=== PATIENT | male | born 1940 | race Asian ===

== ENCOUNTER 2016-10-25 17:29 | Inpatient (IN) | payer MEDICARE, OTHER ==
[~2016-10-25] VITALS: Ht 165.1 cm; Wt 67.2 kg
[~2016-10-25 17:29] MED LIST: ALLOPURINOL100 M1 PO; CENTRUM1 TAB PO; CIPRO500 MG PO; COLSALIDE IMPR0.6 MG PO; CRESTOR10 MG; FISH OIL1000 M1 PO; FLOMAX0.4 MG PO; LISINOPRIL20 MG PO; METOPROLOL100 MG; METOPROLOL50 M1 PO; MONOPRIL20 MG; SIMVASTATIN20 M1 PO
[2016-10-25 17:34] VITALS: BP 151/112
--- NOTE | 2016-10-25 17:43 | NUR ---
76/M BIB FAMILY C/O CHEST PAIN X 3 DAY . PT DENIES N/V/D; SKIN IS PINK/WARM/DRY; AAOX4 WITH EVEN AND STEADY GAIT; LUNGS CLEAR BL; HR EVEN AND REGULAR; PT DENIES ANY FEVER,SOB, OR COUGH AT THIS TIME; PATIENT STATES PAIN OF 5/10 AT THIS TIME; PATIENT POSITIONED FOR COMFORT; HOB ELEVATED; BEDRAILS UP X2; BED DOWN. ER MD MADE AWARE OF PT STATUS.
--- NOTE | 2016-10-25 17:47 | NUR ---
LAB AT BEDSIDE
--- NOTE | 2016-10-25 18:30 | NUR ---
DR LEE EVALUATING PT AT BEDSIDE
[2016-10-25] MEDS ORDERED: INSULIN ASPART SLIDING SCALE 100 UNITS/ML VIAL SUBQ PRN ×2 (18:55→20:30)
[2016-10-25] MEDS ORDERED: DEXTROSE 50% 50 ML SYR IVP PRN ×2 (18:55→20:30)
[2016-10-25] MEDS ORDERED: ALBUTEROL 0.083% 2.5 MG/3 ML NEBU IH PRN ×2 (18:55→20:30)
[2016-10-25] MEDS ORDERED: ONDANSETRON 4 MG/2 ML VIAL IVP PRN ×2 (18:55→20:30)
[2016-10-25] MEDS ORDERED: HYDROcodone/APAP 5/325 MG 1 TAB TAB PO PRN (18:55)
--- NOTE | 2016-10-25 19:15 | NUR ---
GOT REPORT FROM LAKESHA MCKINNON
--- NOTE | 2016-10-25 19:16 | NUR ---
Pt report given to LAKESHA ZIEGLER. Transfer of care at this time.
--- NOTE | 2016-10-25 20:21 | NUR ---
Patient will be admitted to care of DR. HENLEY. Admited to TELEMETRY. Will go to [id number]. Belongings list completed. Report to LAKESHA ROQUE.
--- NOTE | 2016-10-25 20:28 | NUR ---
PT ARRIVED TO UNIT IN ROOM 123B. ABLE TO AMBULATE FROM GURNEY TO BED WITH CANE. SON AT BEDSIDE.
[2016-10-25 20:35] VITALS: BP 138/81
--- NOTE | 2016-10-25 20:35 | NUR ---
SHIFT ASSESSMENT DONE AT THIS TIME. PT IS A/O X4, ABLE TO FOLLOW COMMANDS AND VERBALIZE NEEDS. VITAL SIGNS ARE STABLE, PT ON ROOM AIR WITH OXYGEN SATURATION AT 98%. DENIES CHEST PAIN AND N/V/D AT THIS TIME. NO SOB OR RESPIRATORY DISTRESS NOTED. SKIN INTACT. IV ACCESS TO RT AC #20G PATENT AND INTACT. LUNG SOUNDS ARE CLEAR, BOWEL SOUNDS ACTIVE. DISCUSSED PLAN OF CARE WITH PT, VERBALIZED UNDERSTANDING. CALL LIGHT WITHIN REACH. ORIENTED PT TO UNIT. ALL NEEDS MET. WILL CONTINUE TO MONITOR PT. SAFETY PRECAUTIONS IMPLEMENTED.
[2016-10-25] MEDS ORDERED: BLOOD GLUCOSE MONITORING 1 DEV DEV FS SCH (21:00)
[2016-10-25] MEDS: SIMVASTATIN 20 MG TAB PO SCH (21:03)
[2016-10-25] MEDS: BLOOD GLUCOSE MONITORING 1 DEV DEV FS SCH (21:05)
[2016-10-25] MEDS ORDERED: INFLUENZA VIRUS VACCINE QUAD 0.5 ML SYR IMVAC PRN (21:30)
[2016-10-25] MEDS ORDERED: PNEUMOCOCCAL VACCINE 23 MCG/0.5 ML VIAL IMVAC PRN (21:30)
[2016-10-25] MEDS ORDERED: ASPIRIN81 M1 PO (21:33)
[2016-10-25] MEDS ORDERED: GLUCOPHAGE XR500 MG PO (21:33)
[2016-10-25] MEDS: HYDROcodone/APAP 5/325 MG 1 TAB TAB PO PRN (21:43)
--- NOTE | 2016-10-25 21:44 | NUR ---
PROVIDED PT WITH PAIN MEDICATION PER ORDERS. SEE eMAR AND PAIN INTERVENTION.
--- NOTE | 2016-10-25 23:05 | NUR ---
PT NOTED SLEEPING, NO ACUTE DISTRESS. WILL CONTINUE TO MONITOR.
[2016-10-26] VITALS: BP 109/66
--- NOTE | 2016-10-26 00:09 | NUR ---
VS REMAIN STABLE. PT WAS SLEEPING WELL. NO DISTRESS NOTED. NO SOB. PT DENIES CHEST PAIN OR HEADACHE. WILL CONTINUE TO MONITOR. CALL LIGHT WITHIN REACH.
--- NOTE | 2016-10-26 02:01 | NUR ---
PT REMAINS ASLEEP, NO ACUTE DISTRESS NOTED. CALL LIGHT WITHIN REACH.
[2016-10-26 04:00] VITALS: BP 124/78
--- NOTE | 2016-10-26 04:15 | NUR ---
VITAL SIGNS REMAINS STABLE. PT ABLE TO WAKE, RESPOND AND FOLLOW COMMAND. NO ACUTE DISTRESS NOTED. CALL LIGHT WITHIN EASY REACH. WILL CONTINUE TO MONITOR.
[2016-10-26] MEDS: HYDROcodone/APAP 5/325 MG 1 TAB TAB PO PRN (07:05)
--- NOTE | 2016-10-26 07:27 | NUR ---
ENDORSED PT TO DONATO RN FOR CONTINUITY OF CARE AT PT BEDSIDE, NO ACUTE DISTRESS NOTED. PT TALKING ON PHONE.
--- NOTE | 2016-10-26 07:28 | NUR ---
RECEIVED REPORT FROM LAKESHA ROQUE. PATIENT IS ON THE PHONE TALKING, AAOX4, SKIN IS INTACT, HAS A RIGHT AC 20G ON SALINE LOCK, FLUSHED PATENT. INITIAL ASSESSMENT DONE, NO S/S OF RESPIRATORY DISTRESS OR DISCOMFORT NOTED, DISCUSSED PLAN OF CARE, PT VERBALIZED UNDERSTANDING. SAFETY/FALL PRECAUTION ENFORCED, CALL LIGHT WITHIN REACH. WILL CONTINUE TO MONITOR
[2016-10-26] MEDS: BLOOD GLUCOSE MONITORING 1 DEV DEV FS SCH ×4 (07:39→21:00)
[2016-10-26 08:00] VITALS: BP 115/69
--- NOTE | 2016-10-26 08:21 | NUR ---
PATIENT HAS BEEN SCREENED AND CATEGORIZED HIGH NUTRITION RISK. PATIENT WILL BE SEEN WITHIN 1-2 DAYS OF ADMISSION. 10/26/16-10/27/[address]
[2016-10-26] MEDS ORDERED: TAMSULOSIN 0.4 MG CAP PO SCH (09:00)
[2016-10-26] MEDS ORDERED: ENOXAPARIN 40 MG/0.4 ML SYR SUBQ SCH ×3 (09:00)
[2016-10-26] MEDS ORDERED: SIMVASTATIN 20 MG TAB PO SCH (09:00)
[2016-10-26] MEDS ORDERED: ASPIRIN 325 MG TAB PO SCH (09:00)
[2016-10-26] MEDS ORDERED: METOPROLOL 50 MG TAB PO SCH (09:00)
[2016-10-26] MEDS ORDERED: LISINOPRIL 20 MG TAB PO SCH (09:00)
[2016-10-26] MEDS: LISINOPRIL 20 MG TAB PO SCH (09:20)
[2016-10-26] MEDS: METOPROLOL 50 MG TAB PO SCH (09:23)
[2016-10-26] MEDS: TAMSULOSIN 0.4 MG CAP PO SCH (09:23)
[2016-10-26] MEDS: ASPIRIN 325 MG TAB PO SCH (09:23)
--- NOTE | 2016-10-26 09:23 | NUR ---
DUE MEDICATIONS WERE GIVEN. PATIENT TOLERATED WELL. WILL CONTINUE TO MONITOR
[2016-10-26] MEDS: ENOXAPARIN 40 MG/0.4 ML SYR SUBQ SCH (09:31)
[2016-10-26 12:00] VITALS: BP 113/64
--- NOTE | 2016-10-26 12:52 | NUR ---
PT'S FAMILY MEMBER AT BEDSIDE, QUESTIONS ANSWERED. PT IS RESTING ON BED, NO S/S OF RESPIRATORY DISTRESS OR DISCOMFORT NOTED, ALL NEEDS MET AT THIS TIME, CALL LIGHT WITHIN REACH, WILL CONTINUE TO MONITOR.
--- NOTE | 2016-10-26 15:50 | NUR ---
SPOKE TO Armando PÉREZ UPDATED ON PT'S CONDITION, HE STATED THAT HE WILL BE COMING LATER TO SEE THE PT.
[2016-10-26 16:00] VITALS: BP 95/54
--- NOTE | 2016-10-26 16:21 | NUR ---
PT IS SLEEPING AT THIS TIME, NO S/S OF RESPIRATORY DISTRESS OR DISCOMFORT NOTED, FAMILY MEMBERS AT BEDSIDE, CALL LIGHT WITHIN REACH, WILL CONTINUE TO MONITOR.
--- NOTE | 2016-10-26 17:44 | NUR ---
Armando PÉREZ IS IN THE NURSE'S STATION.
[2016-10-26] MEDS ORDERED: REGADENOSON 0.4 MG/5 ML SYR IV ONE (17:50)
--- NOTE | 2016-10-26 18:02 | NUR ---
DINNER SERVED, PT HAS GOOD APPETITE, NO S/S OF RESPIRATORY DISTRESS OR DISCOMFORT NOTED, ALL NEEDS MET AT THIS TIME, CALL LIGHT WITHIN REACH, WILL CONTINUE TO MONITOR.
--- NOTE | 2016-10-26 19:10 | NUR ---
PT WAS ENDORSED TO LAKESHA MARQUEZ. FOR CONTINUITY OF CARE. PT IS STABLE AT THIS TIME.
--- NOTE | 2016-10-26 19:12 | NUR ---
RECEIVED REPORT FROM DAYSHIFT RN FOR CONTINUITY OF CARE. PATIENT IS A&OX4, DISCUSSED PLAN OF CARE WITH PT AND SON AT BEDSIDE, VERBALIZED UNDERSTANDING. SHIFT ASSESSMENT DONE, VS TAKEN, PATIENT IS STABLE AT THIS TIME. NO S/S OF RESPIRATORY DISTRESS NOTED ON ROOM AIR. PATIENT DENIES PAIN. IV TO RT AC 20 GAUGE PATENT AND FLUSHED. SKIN INTACT. SAFETY/ FALL PRECAUTIONS ENFORCED. EDUCATED PATIENT REGARDING NPO AT MIDNIGHT FOR LEXISCAN TEST, VERBALIZED UNDERSTANDING. CALL LIGHT WITHIN REACH. WILL CONTINUE TO MONITOR.
[2016-10-26 20:00] VITALS: BP 119/71
[2016-10-26] MEDS: SIMVASTATIN 20 MG TAB PO SCH (20:38)
--- NOTE | 2016-10-26 20:38 | NUR ---
DUE MEDICATION ADMINISTERED, TOLERATED WELL. BLOOD SUGAR TAKEN, 117 NO COVERAGE NEEDED. REINFORCED TO PT NPO AFTER MIDNIGHT, VERBALIZED UNDERSTANDING. CALL LIGHT WITHIN REACH.
--- NOTE | 2016-10-26 22:36 | NUR ---
PATIENT IS ASLEEP. NO S/S OF DISTRESS OR DISCOMFORT NOTED. CALL LIGHT WITHIN REACH.
--- NOTE | 2016-10-26 23:57 | NUR ---
VS TAKEN, STABLE. PATIENT ATE SMALL SNACK AND WATER PRIOR TO NPO STATUS. PATIENT UP AT SINK PERFORMING PM CARE. CALL LIGHT WITHIN REACH.
[2016-10-27] VITALS: BP 129/75
--- NOTE | 2016-10-27 02:05 | NUR ---
PT IS SLEEPING. NO S/S OF RESPIRATORY DISTRESS NOTED. CALL LIGHT WITHIN REACH.
--- NOTE | 2016-10-27 03:45 | NUR ---
VS TAKEN, STABLE. PT C/O HEADACHE, REFUSED PAIN MEDICATION. NPO REINFORCED. CALL LIGHT WITHIN REACH.
[2016-10-27 04:00] VITALS: BP 114/58
--- NOTE | 2016-10-27 06:12 | NUR ---
BLOOD SUGAR TAKEN, 103, NO INSULIN COVERAGE NEEDED. PT STATES HEADACHE IS STILL THERE BUT REFUSED PAIN MEDICATIONS WHEN OFFERED. WILL CONTINUE TO MONITOR.
[2016-10-27] MEDS: BLOOD GLUCOSE MONITORING 1 DEV DEV FS SCH ×4 (06:13→20:23)
--- NOTE | 2016-10-27 07:13 | NUR ---
ENDORSED PATIENT TO DAYSHIFT RN FOR CONTINUITY OF CARE, PATIENT IS IN STABLE CONDITION.
--- NOTE | 2016-10-27 07:14 | NUR ---
RECEIVED REPORT FROM LAKESHA MARQUEZ. PT IS RESTING ON BED, AAOx4, SKIN INTACT, IV ON RT AC, FLUSHED PATENT AND INTACT ON SALINE LOCK. INITIAL ASSESSMENT DONE, NO S/S RESPIRATORY DISTRESS OR DISCOMFORT NOTED. DISCUSSED PLAN OF CARE, PT VERBALIZED UNDERSTANDING. SAFETY/FALL PRECAUTIONS ENFORCED, CALL LIGHT WITHIN REACH. WILL CONTINUE TO MONITOR.
[2016-10-27 08:00] VITALS: BP 133/74
[2016-10-27] MEDS: ASPIRIN 325 MG TAB PO SCH (08:44)
[2016-10-27] MEDS: TAMSULOSIN 0.4 MG CAP PO SCH (08:44)
[2016-10-27] MEDS: METOPROLOL 50 MG TAB PO SCH (08:45)
--- NOTE | 2016-10-27 08:45 | NUR ---
DUE MEDS GIVEN, PT TOLERATED WELL, CALL LIGHT WITHIN REACH, WILL CONTINUE TO MONITOR
[2016-10-27] MEDS: LISINOPRIL 20 MG TAB PO SCH (08:46)
[2016-10-27] MEDS: ENOXAPARIN 40 MG/0.4 ML SYR SUBQ SCH (08:48)
--- NOTE | 2016-10-27 08:49 | NUR ---
DUE MEDS GIVEN, PT TOLERATED WELL. LOVENOX HELD, PT PLT 110. ALL NEEDS MET AT THIS TIME. CALL LIGHT WITHIN REACH WILL CONTINUE TO MONITOR.
--- NOTE | 2016-10-27 09:34 | NUR ---
INITIAL REVIEW FAXED TO [facility] [phone] PHONE DESIREE [phone]
--- NOTE | 2016-10-27 11:30 | NUR ---
PT RESTING ON BED TALKING TO FAMILY MEMBERS AT BEDSIDE. QUESTIONS ANSWERED. ALL NEEDS MET AT THIS TIME. CALL LIGHT WITHIN REACH. WILL CONTINUE TO MONITOR.
[2016-10-27 12:00] VITALS: BP 113/69
--- NOTE | 2016-10-27 13:05 | NUR ---
PT RESTING ON BED TALKING TO FAMILY MEMBERS AT BEDSIDE. ALL NEEDS MET AT THIS TIME. CALL LIGHT WITHIN REACH. WILL CONTINUE TO MONITOR.
--- NOTE | 2016-10-27 13:52 | NUR ---
10/27/16 RD INITIAL ASSESSMENT COMPLETED PLEASE REFER TO NUTRITION ASSESSMENT UNDER CARE ACTIVITY FOR ESTIMATED NUTRITIONAL NEEDS. RD RECOMMENDATIONS: 1. CONTINUE CCHO 60 GM DIET TOLERATED PER MD 2. RD PROVIDED PT WITH DM DIET EDUCATION 3. RD WILL F/U 5-7 DAYS; LOW RISK. KENYON BAINS RD
--- NOTE | 2016-10-27 14:39 | NUR ---
PT LEFT UNIT FOR LEXISCAN STRESS TEST.
--- NOTE | 2016-10-27 16:24 | NUR ---
LEXISCAN STRESS TEST DONE
--- NOTE | 2016-10-27 16:56 | NUR ---
PT IS BACK FROM LEXISCAN STRESS TEST, ALL NEEDS MET AT THIS TIME, NO S/S OF RESPIRATORY DISTRESS OR DISCOMFORT NOTED, CALL LIGHT WITHIN REACH, WILL CONTINUE TO MONITOR.
[2016-10-27 17:00] VITALS: BP 123/85
--- NOTE | 2016-10-27 19:00 | NUR ---
ENDORSED PT TO LAKESHA MARQUEZ FOR CONTINUITY OF CARE. PT IS STABLE AT THIS TIME.
--- NOTE | 2016-10-27 19:22 | NUR ---
RECEIVED REPORT FROM DAYSHIFT RN FOR CONTINUITY OF CARE. PATIENT IS A&OX4, DISCUSSED PLAN OF CARE WITH PT AND FAMILY MEMBER AT BEDSIDE, VERBALIZED UNDERSTANDING. SHIFT ASSESSMENT DONE, VS TAKEN, STABLE. NO S/S OF RESPIRATORY DISTRESS NOTED ON ROOM AIR. PATIENT DENIES PAIN. IV TO RT HAND 24 GAUGE PATENT AND FLUSHED, REINFORCED DRESSING. SKIN INTACT. SAFETY/ FALL PRECAUTIONS ENFORCED. CALL LIGHT WITHIN REACH. WILL CONTINUE TO MONITOR.
[2016-10-27 20:00] VITALS: BP 125/64
[2016-10-27] MEDS: SIMVASTATIN 20 MG TAB PO SCH (20:19)
--- NOTE | 2016-10-27 20:19 | NUR ---
DUE MEDICATION ADMINISTERED, TOLERATED WELL. BLOOD SUGAR TAKEN, 156. CALL LIGHT WITHIN REACH.
--- NOTE | 2016-10-27 21:25 | NUR ---
INSULIN ADMINISTERED PER MD ORDER. ALL NEEDS MET AT THIS TIME. WILL CONTINUE TO MONITOR.
[2016-10-28] VITALS: BP 97/48
--- NOTE | 2016-10-28 00:05 | NUR ---
VS TAKEN, STABLE. PT IS SLEEPING, NO S/S OF DISTRESS OR DISCOMFORT NOTED. CALL LIGHT WITHIN REACH.
--- NOTE | 2016-10-28 01:47 | NUR ---
PT IS SLEEPING. NO S/S OF DISTRESS OR DISCOMFORT NOTED. CALL LIGHT WITHIN REACH.
[2016-10-28 04:00] VITALS: BP 109/75
--- NOTE | 2016-10-28 04:02 | NUR ---
VS TAKEN, STABLE. INFORMED PATIENT OF RESULTS FROM LEXISCAN, VERBALIZED UNDERSTANDING. CALL LIGHT WITHIN REACH.
[2016-10-28] MEDS: BLOOD GLUCOSE MONITORING 1 DEV DEV FS SCH (06:01)
--- NOTE | 2016-10-28 06:30 | NUR ---
ADMINISTERED VACCINES PER MD ORDER, NO REACTION NOTED. BLOOD SUGAR, 105, NO COVERAGE NEEDED. WILL CONTINUE TO MONITOR.
--- NOTE | 2016-10-28 07:00 | NUR ---
ENDORSED PATIENT TO DAYSHIFT RN FOR CONTINUITY OF CARE, PATIENT IS IN STABLE CONDITION.
--- NOTE | 2016-10-28 07:00 | NUR ---
PT ALERT AND ORIENTED X4, BREATHING EVENLY AND UNLABORED, NO SIGNS OF ACUTE DISTRESS. SKIN IS WARM AND DRY. NO SIGNS OF ANY BOWEL/BLADDER DISCOMFORT. DENIES OF ANY PAIN OR DISCOMFORT. ALL NEEDS ATTENDED, SAFETY PRECAUTIONS MAINTAINED. CALL LIGHT WITHIN REACH. JANUARY D/C HOME ORDERED, LEXISCAN RESULT NEGATIVE.
[2016-10-28 08:00] VITALS: BP 132/71
[2016-10-28] MEDS: METOPROLOL 50 MG TAB PO SCH (08:38)
[2016-10-28] MEDS: ASPIRIN 325 MG TAB PO SCH (08:39)
[2016-10-28] MEDS: TAMSULOSIN 0.4 MG CAP PO SCH (08:40)
[2016-10-28] MEDS: LISINOPRIL 20 MG TAB PO SCH (08:40)
[2016-10-28] MEDS: ENOXAPARIN 40 MG/0.4 ML SYR SUBQ SCH (08:44)
--- NOTE | 2016-10-28 10:15 | NUR ---
PT AWAKE ALERT AND ORIENTED, NO SIGNS OF ACUTE DISTRESS, DENIES OF ANY PAIN. MAY D/C HOME. EDUCATED TO FOLLOW UP WITH PCP AND STONECUTTER ASSISTANT. CONTINUE HOME MEDS ORDERED. PT VERBALIZED UNDERSTANDING. IV LINE WRIST BANDS AND TELE LEADS REMOVED. PERSONAL BELONGINGS WITH PT UPON DISCHARGE. PICKED UP BY SON AND ESCORTED TO FRONT LOBBY. WILL GO HOME VIA PRIVATE AUTO.
== END 2016-10-28 10:15 | disposition home or self-care (01) | DRG 198 ==
LOC: MED 17:29 → MTU 20:21 → MED 20:24 → OBSVTOIN 10-26 14:46
PROVIDERS: ADMIT Hospitalist; ATTEND Hospitalist
DX: R07.89 Other chest pain (principal); I25.10 Atherosclerotic heart disease of native coronary artery without angina pectoris; E11.9 Type 2 diabetes mellitus without complications; I10 Essential (primary) hypertension; R51 Headache; E78.5 Hyperlipidemia, unspecified; Z28.21 Immunization not carried out because of patient refusal; Z79.899 Other long term (current) drug therapy; Z90.49 Acquired absence of other specified parts of digestive tract
CPT/HCPCS: 99285; G0378

== ENCOUNTER 2017-02-27 14:55 | Emergency (ER) | payer MEDICARE, OTHER ==
[~2017-02-27] VITALS: Ht 165.1 cm; Wt 68.0 kg
[~2017-02-27 14:55] MED LIST changes: -ALLOPURINOL100 M1 PO; +ASPI81CT89 PO; -CENTRUM1 TAB PO; -CIPRO500 MG PO; -COLSALIDE IMPR0.6 MG PO; -CRESTOR10 MG; -FISH OIL1000 M1 PO; +FISH10005 PO; -FLOMAX0.4 MG PO; +LISI-420 PO; -LISINOPRIL20 MG PO; +METF500T2 PO; +METO50TA69 PO; -METOPROLOL100 MG; -METOPROLOL50 M1 PO; -MONOPRIL20 MG; +MULT-1468 PO; +SIMV20TA6 PO; -SIMVASTATIN20 M1 PO; +TAMS0.4C96 PO
[2017-02-27 15:34] VITALS: BP 111/67
--- NOTE | 2017-02-27 17:31 | NUR ---
Pt ambulated to bed 6
--- NOTE | 2017-02-27 17:31 | NUR ---
PATIENT PRESENTS TO ED WITH SUPRAPUBIC PAIN, URGENCY, FREQUENCY, HESISTANCY . PT STATES . DENIES N/V/D; SKIN IS PINK/WARM/DRY; AAOX4 WITH EVEN AND STEADY GAIT; LUNGS CLEAR BL; HR EVEN AND REGULAR; PT DENIES ANY FEVER, CP, SOB, OR COUGH AT THIS TIME; PATIENT STATES PAIN OF 7/10 AT THIS TIME; VSS; PATIENT POSITIONED FOR COMFORT; HOB ELEVATED; BEDRAILS UP X2; BED DOWN. ER MD MADE AWARE OF PT STATUS.
[2017-02-27 17:48] LABS: BILIRUBIN,URINE 1+ (NEGATIVE); BLOOD, URINE 3+ (NEGATIVE); LEUKOCYTE ESTERASE ,URINE 2+ (NEGATIVE); NITRITE, URINE NEGATIVE (NEGATIVE); PROTEIN,URINE 2+ (NEGATIVE); UGLUCOSE NEGATIVE (NEGATIVE)
--- NOTE | 2017-02-27 17:48 | NUR ---
Patient being evaluated by physician at bedside.
[2017-02-27 17:51] LABS: APPEARANCE,URINE HAZY (CLEAR); COLOR,URINE AMBER (YELLOW)
[2017-02-27 17:54] LABS: ICTOTEST NEGATIVE (NEGATIVE)
[2017-02-27 17:55] LABS: BACTERIA,URINE 4+ /HPF (None Seen); MUCUS,URINE 1+ /LPF (None Seen); SQUAMOUS EPITHELIAL CELL,UR 0-3 /LPF (0-3 (FEW)); WBC,URINE 80-100 /HPF (0-5)
[2017-02-27] MEDS: PHENAZOPYRIDINE 100 MG TAB PO ONE (17:59)
[2017-02-27] MEDS: CIPROFLOXACIN 250 MG TAB PO ONE (17:59)
--- NOTE | 2017-02-27 18:44 | NUR ---
Patient discharged with v/s stable. Written and verbal after care instructions given and explained. Patient alert, oriented and verbalized understanding of instructions. Ambulatory with steady gait. All questions addressed prior to discharge. ID band removed. Patient advised to follow up with PMD. Rx of CIPRO/PYRIDIUM given. Patient educated on indication of medication including possible reaction and side effects. Opportunity to ask questions provided and answered.
[2017-02-27 18:46] VITALS: BP 135/89
== END 2017-02-27 18:44 | disposition home or self-care (01) ==
LOC: MED 14:55
DX: N39.0 Urinary tract infection, site not specified (principal); I25.10 Atherosclerotic heart disease of native coronary artery without angina pectoris; E11.9 Type 2 diabetes mellitus without complications; I10 Essential (primary) hypertension
CPT/HCPCS: 81001; 87086; 87186; 99284